=== PATIENT | male | born 1940 | race African-American/Black ===

== ENCOUNTER 2020-04-23 13:42 | Emergency (ER) | payer BC ==
[~2020-04-23] VITALS: Ht 175.3 cm; Wt 76.0 kg
[2020-04-23] MEDS ORDERED: IBUPROFEN 600MG TABLET PO STA (14:14)
[2020-04-23 14:44] LABS: BASOPHILS % 0.7 % (0.0-2.0); EOSINOPHILS % 0.9 % (0.0-5.0); HEMATOCRIT. 37.5 % (42.0-52.0); HEMOGLOBIN. 12.2 g/dL (14.0-18.0); LYMPHOCYTES % 41.3 % (20.0-50.0); MEAN CORPUSCULAR VOLUME 88.6 fL (80.0-94.0); MEAN PLATELET VOLUME 9.6 fl (7.4-10.4); MONOCYTES % 6.8 % (2.0-8.0); NEUTROPHILS % 50.3 % (40.0-76.0); PLATELET 183 x1000/uL (130-400); RED BLOOD CELL COUNT 4.23 mill/uL (4.7-6.1); RED CELL DISTRIBUTION WIDTH 13.2 % (11.6-14.6)
[2020-04-23 14:49] LABS: CHLORIDE 101 mEq/L (98-107)
[2020-04-23 15:42] LABS: CLARITY URINE CLEAR (CLEAR); COLOR URINE YELLOW (YELLOW); KETONES URINE TRACE (NEGATIVE); LEUKOCYTE ESTERASE URINE NEGATIVE (NEGATIVE); NITRITE URINE NEGATIVE (NEGATIVE); OCCULT BLOOD URINE NEGATIVE (NEGATIVE); PH URINE 5.5 (4.5-8.0); PROTEIN URINE TRACE (NEGATIVE); SPECIFIC GRAVITY URINE 1.031 (1.005-1.030); UROBILINOGEN URINE 0.2 E.U./dL (0.2-1.0)
[2020-04-23] MEDS ORDERED: INSULIN REGULAR (HUMULIN R) 300UNITS/3ML VIAL SUBCUT NR (15:45)
[2020-04-23] MEDS ORDERED: CLONIDINE 0.2MG TABLET PO ONE (15:45)
[2020-04-23] MEDS ORDERED: SODIUM CHLORIDE 0.9% 1,000 ML IV ONE (15:45)
[2020-04-23 16:13] LABS: CHLORIDE 102 mEq/L (98-107)
[2020-04-23 16:24] LABS: BETA HYDROXYBUTYRATE 0.1 mMol/L (0.0-0.3)
[2020-04-23] MEDS ORDERED: IBUP-2028 MT (17:01)
[2020-04-23] MEDS ORDERED: METF-414 MT (17:01)
[2020-04-23] MEDS ORDERED: HYDR25TA MT (17:01)
[2020-04-23 17:21] VITALS: BP 224/97
== END 2020-04-23 17:47 | disposition home or self-care (01) ==
LOC: ER 13:42
DX: M54.40 Lumbago with sciatica, unspecified side (principal); E11.65 Type 2 diabetes mellitus with hyperglycemia; I10 Essential (primary) hypertension; M25.552 Pain in left hip; R53.1 Weakness; Z79.899 Other long term (current) drug therapy
CPT/HCPCS: 36415; 73502; 74176; 80048; 80053; 81003; 82010; 82962; 84484; 85025; 93005; 96360; 99285; J1815